=== PATIENT | female | born 1945 | race Caucasian/White ===

== ENCOUNTER 2016-10-14 23:46 | Emergency (ER) | payer MEDICARE, OTHER ==
--- NOTE | ~2016-10-14 | CT71 ---
[facility] A Service of [facility] RADIOLOGY TEXT RESULTS PATIENT: JIMY BROWNING LOCATION: [facility] : 41 UNIT #: [id number] AGE: [address]: Mark Pavon MD SEX: F ORDER DR: [id number] [facility] [address] [place], [place] [address] [id number] E MR#: [id number] Acc #: [id number] NAME: JIMY BROWNING. : 1945 SEX: F STUDY DATE/TIME: 10/15/2016 01:10 UNIT: [facility] ROOM: STUDY DESCRIPTION: CT Head Wo Contrast Attending Physician: Mark Pavon Ordering Physician: Ed Tony Sánchez M.D. Primary Care Physician: Primary Care Physician No MEDICAL IMAGING REPORT This report is preliminary unless electronic signature is present EXAM Head CT, 10/15/2016 at 01:10 INDICATION Fall tonight. Headache. The patient hit right side of head. FINDINGS Axial images were obtained from the base to the vertex without contrast. No comparison. This CT exam was performed with one or more of the following radiation dose reduction techniques: automatic exposure control, adjustment of mA and/or kV according to patient size, and iterative reconstruction. FINDINGS There is mild generalized age-appropriate atrophy. Ventricular size and configuration within normal limits. No acute infarct or hemorrhage is seen. There are no masses. There is no skull fracture. IMPRESSION Age-appropriate atrophy, otherwise negative head CT. Dictated by... Chance Amezquita Jr., M.D. THIS IS AN ELECTRONICALLY VERIFIED REPORT Chance Amezquita Jr., M.D. at 10/15/2016 6:10 AM SARIKA/leyda TD: 10/15/2016 02:56 JOB #: [id number] [facility] A Service of [facility] RADIOLOGY TEXT RESULTS PATIENT: JIMY BROWNING LOCATION: [facility] : 41 UNIT #: [id number] AGE: [address]: Mark Pavon MD SEX: F ORDER DR: MEDICAL IMAGING REPORT Page 1 of 1 COPY
--- NOTE | ~2016-10-14 | CR93 ---
[facility] A Service of [facility] RADIOLOGY TEXT RESULTS PATIENT: JIMY BROWNING LOCATION: [facility] : 41 UNIT #: [id number] AGE: [address]: Mark Pavon MD SEX: F ORDER DR: [id number] [facility] [address] [place], [place] [address] [id number] E MR#: [id number] Acc #: [id number] NAME: JIMY BROWNING : 1945 SEX: F STUDY DATE/TIME: 10/15/2016 00:35 UNIT: [facility] ROOM: STUDY DESCRIPTION: CR Elbow Min 3 Views Lt Attending Physician: Mark Pavon Ordering Physician: Ed Doc Wilmer Sánchez Primary Care Physician: Primary Care Physician No MEDICAL IMAGING REPORT This report is preliminary unless electronic signature is present EXAM Left elbow, 10/15/2016 at 0035 hours INDICATION Elbow pain after fall tonight. FINDINGS 3 views of the left elbow were obtained. No fracture or dislocation is seen. There is no joint effusion. IMPRESSION Negative left elbow. Dictated by... Chance Amezquita Jr., M.D. THIS IS AN ELECTRONICALLY VERIFIED REPORT Chance Amezquita Jr., M.D. at 10/15/2016 6:09 AM SARIKA/leyda TD: 10/15/2016 02:22 JOB #: [id number] MEDICAL IMAGING REPORT Page 1 of 1 COPY
--- NOTE | ~2016-10-14 | CR229 ---
[facility] A Service of [facility] RADIOLOGY TEXT RESULTS PATIENT: JIMY BROWNING LOCATION: [facility] : 41 UNIT #: [id number] AGE: [address]: Mark Pavon MD SEX: F ORDER DR: [id number] [facility] [address] [place], [place] [address] [id number] E MR#: [id number] Acc #: [id number] NAME: JIMY BROWNING : 1945 SEX: F STUDY DATE/TIME: 10/15/2016 00:32 UNIT: [facility] ROOM: STUDY DESCRIPTION: CR Shoulder Min 2 View Lt Attending Physician: Mark Pavon Ordering Physician: Ed Doc Wilmer Sánchez Primary Care Physician: Primary Care Physician No MEDICAL IMAGING REPORT This report is preliminary unless electronic signature is present EXAM Left shoulder, 10/15/2016 at 0032 hours INDICATION Shoulder pain tonight after a fall. FINDINGS 3 views of the left shoulder were obtained. There is no dislocation. There is no AC joint separation. There is a comminuted proximal humerus fracture. It extends across the surgical neck and through the greater tuberosity. The greater tuberosity is minimally displaced. IMPRESSION Proximal humerus fracture. The fracture extends across the surgical neck and through the greater tuberosity with slight displacement of the greater tuberosity fragment. No dislocation. Dictated by... Chance Amezquita Jr., M.D. THIS IS AN ELECTRONICALLY VERIFIED REPORT Chance Amezquita Jr., M.D. at 10/15/2016 6:09 AM SARIKA/leyda TD: 10/15/2016 02:20 JOB #: [id number] MEDICAL IMAGING REPORT Page 1 of 1 COPY
--- NOTE | ~2016-10-14 | CR173 ---
[facility] A Service of [facility] & [facility] RADIOLOGY TEXT RESULTS PATIENT: JIMY BROWNING LOCATION: [facility] : 41 UNIT #: [id number] AGE: [address]: Mark Pavon MD SEX: F ORDER DR: [id number] [facility] [address] [place], [place] [address] [id number] E MR#: [id number] Acc #: [id number] NAME: JIMY BROWNING : 1945 SEX: F STUDY DATE/TIME: 10/15/2016 00:38 UNIT: [facility] ROOM: STUDY DESCRIPTION: CR Knee 3 Views Rt Attending Physician: Mark Pavon Ordering Physician: Ed Doc Wilmer Sánchez Primary Care Physician: Primary Care Physician No MEDICAL IMAGING REPORT This report is preliminary unless electronic signature is present EXAM Right knee, 10/15/2016 at 0038 hours INDICATION Knee pain after fall tonight. FINDINGS 3 views of the right knee were obtained. Patient is osteopenic. There is osteoarthritis, predominately patellofemoral. No fracture is seen. There is no joint effusion. IMPRESSION Patellofemoral osteoarthritis with osteopenia. No acute findings in the knee. Dictated by... Chance Amezquita Jr., M.D. THIS IS AN ELECTRONICALLY VERIFIED REPORT Chance Amezquita Jr., M.D. at 10/15/2016 6:09 AM SARIKA/leyda TD: 10/15/2016 02:23 JOB #: [id number] MEDICAL IMAGING REPORT Page 1 of 1 COPY
[~2016-10-14 23:46] MED LIST: AMARYL PO; ASPIRIN81 MG PO; CALCIUM500 MG PO; DARVOCET-N 1001 TAB PO; LISINOPRIL PO; MEDROL PO; NORCO1 TAB 10/3 PO; PRAVACHOL PO; VICODIN 5/500 T1 TAB PO
== END 2016-10-15 02:20 | disposition home or self-care (01) ==
LOC: CED 23:46
DX: S42.212A Unspecified displaced fracture of surgical neck of left humerus, initial encounter for closed fracture (principal); E11.9 Type 2 diabetes mellitus without complications; W01.0XXA Fall on same level from slipping, tripping and stumbling without subsequent striking against object, initial encounter; Y92.009 Unspecified place in unspecified non-institutional (private) residence as the place of occurrence of the external cause
CPT/HCPCS: 36415; 70450; 73030; 73080; 73562; 99284